=== PATIENT | male | born 1965 | race Caucasian/White ===

== ENCOUNTER 2017-12-20 09:37 | Inpatient (IN) | payer MEDICARE, MEDICAID ==
[~2017-12-20] VITALS: Ht 165.1 cm; Wt 96.2 kg
[2017-12-20] MEDS ORDERED: SODIUM CHLORIDE 0.9% 1,000 ML IV ONE (10:06)
[2017-12-20] MEDS ORDERED: METHYLPREDNISOLONE SOD SUCC 125 MG/2 ML VIAL IV STA (10:06)
[2017-12-20] MEDS ORDERED: FUROSEMIDE 40MG/4ML VIAL IVP ONE (10:15)
[2017-12-20] MEDS ORDERED: NITROGLYCERIN OINT 1GM/INCH UDPKT TD ONE (10:15)
[2017-12-20] MEDS ORDERED: ACETAMINOPHEN 325MG TABLET PO ONE (10:15)
[2017-12-20] MEDS ORDERED: IPRATROPIUM/ALBUTEROL 0.5-3(2.5)MG/3ML NEB HHN ONE (10:15)
[2017-12-20] MEDS ORDERED: ONDANSETRON HCL 4MG/2ML VIAL IV PRN (10:30)
[2017-12-20] MEDS ORDERED: DOCUSATE SODIUM 100MG CAPSULE PO PRN (10:30)
[2017-12-20] MEDS ORDERED: ACETAMINOPHEN 325MG TABLET PO PRN (10:30)
[2017-12-20] MEDS ORDERED: ENOXAPARIN 40MG/0.4ML SYR SUBCUT SCH (10:30)
[2017-12-20] MEDS ORDERED: IPRATROPIUM/ALBUTEROL 0.5-3(2.5)MG/3ML NEB INH PRN (10:30)
[2017-12-20] MEDS ORDERED: LEVOFLOXACIN 500MG PREMIX 100 ML IV SCH (10:30)
[2017-12-20] MEDS ORDERED: MORPHINE SULFATE 2 MG/ML CPJ (NOT FOR IM USE) IV PRN (10:30)
[2017-12-20] MEDS ORDERED: CLONIDINE 0.1MG TABLET PO PRN (10:30)
[2017-12-20 10:40] LABS: BASOPHILS % 0.9 % (0.0-2.0); EOSINOPHILS % 1.5 % (0.0-5.0); HEMATOCRIT. 30.3 % (42.0-52.0); HEMOGLOBIN. 10.2 g/dL (14.0-18.0); LYMPHOCYTES % 11.1 % (20.0-50.0); MEAN CORPUSCULAR HEMOGLOBIN 32.4 pg (28.0-32.0); MEAN CORPUSCULAR VOLUME 96.5 fL (80.0-94.0); MEAN PLATELET VOLUME 7.8 fl (7.4-10.4); MONOCYTES % 7.6 % (2.0-8.0); NEUTROPHILS % 78.9 % (40.0-76.0); PLATELET 204 x1000/uL (130-400); RED BLOOD CELL COUNT 3.15 mill/uL (4.7-6.1); RED CELL DISTRIBUTION WIDTH 15.9 % (11.6-14.6)
[2017-12-20 10:49] LABS: PARTIAL THROMBOPLASTIN TIME 27.3 sec (23.4-31.0); PROTHROMBIN TIME 10.4 sec (9.4-11.6)
[2017-12-20 10:57] LABS: CARBON DIOXIDE 31 mEq/L (21-32); CHLORIDE 97 mEq/L (98-107); TROPONIN I 0.04 ng/mL (0.00-0.04)
[2017-12-20 11:00] VITALS: BP 159/90
[2017-12-20 11:06] LABS: BG BASE EXCESS 3.1 mmol/L (-2.0-2.0); BG CARBOXYHEMOGLOBIN 0.9 % (0.5-1.5); BG DEOXYHEMOGLOBIN 5.3 % (0.0-5.0); BG FRACTION INSPIRED OXYGEN 28; BG HCO3 ACT 26.8 mmol/L (22.0-26.0); BG METHEMOGLOBIN 0.2 % (0.0-1.5); BG OXYGEN SATURATION 94.6 % (92.0-98.5); BG OXYHEMOGLOBIN 93.6 % (94.0-97.0); BG PCO2 37.4 mmHg (35.0-45.0); BG PH 7.473 (7.350-7.450); BG PO2 74.8 mmHg (75.0-100.0); BG SAMPLE SITE RIGHT RADIAL; BG TOTAL HEMOGLOBIN 10.8 g/dL (12.0-18.0); BG VENT MODE NASAL CANNULA
[2017-12-20] MEDS ORDERED: DEXTROSE 50% WATER 50ML SYRINGE IV ONE (11:15)
[2017-12-20] MEDS ORDERED: CALCIUM CHLORIDE 1,000 MG in DEXT 5% WATER 100 ML IV ONE (11:15)
[2017-12-20] MEDS ORDERED: SODIUM BICARBONATE 8.4% 1 MEQ/ML 50ML SYR IV ONE (11:15)
[2017-12-20] MEDS ORDERED: INSULIN REGULAR (HUMULIN R) 300UNITS/3ML IV ONE (11:15)
[2017-12-20] MEDS ORDERED: SODIUM POLYSTYRENE SULFONATE 15 G/60 ML BOT PO ONE (11:15)
[2017-12-20] MEDS ORDERED: IOHEXOL-350 100 ML BOTTLE ONE (12:52)
[2017-12-20 14:00] VITALS: BP 140/71
[2017-12-20] MEDS ORDERED: IPRATROPIUM/ALBUTEROL 0.5-3(2.5)MG/3ML NEB HHN PRN (16:15)
[2017-12-20] MEDS ORDERED: AMLO10TA80 PO (16:52)
[2017-12-20] MEDS ORDERED: LOSA50TA20 PO (16:53)
[2017-12-20] MEDS ORDERED: SEVE800T8 PO (16:54)
[2017-12-20] MEDS ORDERED: METO-396 PO (16:54)
[2017-12-20] MEDS ORDERED: LEVOFLOXACIN 750MG PREMIX 150 ML IV SCH (17:00)
[2017-12-20] MEDS ORDERED: SODI15OR4 PO (17:04)
[2017-12-20] MEDS ORDERED: CLON0.1T PO (17:06)
[2017-12-20 17:08] VITALS: BP 131/64
[2017-12-20] MEDS: ENOXAPARIN 30MG/0.3ML SYR SUBCUT SCH (17:46)
[2017-12-20 18:57] LABS: BG BASE EXCESS 1.9 mmol/L (-2.0-2.0); BG CARBOXYHEMOGLOBIN 1.5 % (0.5-1.5); BG DEOXYHEMOGLOBIN 6.9 % (0.0-5.0); BG FRACTION INSPIRED OXYGEN 21; BG HCO3 ACT 25.3 mmol/L (22.0-26.0); BG METHEMOGLOBIN 0.2 % (0.0-1.5); BG OXYHEMOGLOBIN 91.4 % (94.0-97.0); BG PCO2 35.4 mmHg (35.0-45.0); BG PH 7.472 (7.350-7.450); BG PO2 71.4 mmHg (75.0-100.0); BG SAMPLE SITE RIGHT RADIAL; BG TOTAL HEMOGLOBIN 11.4 g/dL (12.0-18.0); BG VENT MODE ROOM AIR
[2017-12-20 19:59] VITALS: BP 157/88
[2017-12-20] MEDS ORDERED: METO25TA6 PO (20:26)
[2017-12-20] MEDS: IPRATROPIUM/ALBUTEROL 0.5-3(2.5)MG/3ML NEB HHN SCH (21:09)
[2017-12-20] MEDS: LOSARTAN POTASSIUM 50 MG TABLET PO SCH (21:59)
[2017-12-20] MEDS: CLONIDINE 0.1MG TABLET PO SCH (22:00)
[2017-12-20 23:56] VITALS: BP 152/79
[2017-12-21] MEDS ORDERED: DEXTROSE 50% WATER 50ML SYRINGE IV PRN (01:00)
[2017-12-21] MEDS: IPRATROPIUM/ALBUTEROL 0.5-3(2.5)MG/3ML NEB HHN SCH ×2 (01:10→10:08)
[2017-12-21 03:48] VITALS: BP 149/79
[2017-12-21] MEDS: CLONIDINE 0.1MG TABLET PO SCH (06:00)
[2017-12-21 06:26] LABS: HEMATOCRIT. 27.6 % (42.0-52.0); HEMOGLOBIN. 9.3 g/dL (14.0-18.0); MEAN CORPUSCULAR HEMOGLOBIN 32.5 pg (28.0-32.0); MEAN CORPUSCULAR VOLUME 96.1 fL (80.0-94.0); MEAN PLATELET VOLUME 8.3 fl (7.4-10.4); PLATELET 184 x1000/uL (130-400); RED BLOOD CELL COUNT 2.87 mill/uL (4.7-6.1); RED CELL DISTRIBUTION WIDTH 15.9 % (11.6-14.6)
[2017-12-21] MEDS: INSULIN LISPRO 100 UNITS/ML SUBCUT SCH ×2 (07:50→12:50)
[2017-12-21] MEDS: BLOOD SUGAR DIAGNOSTIC STRIP TEST SCH ×2 (08:00→11:52)
[2017-12-21 08:11] LABS: CARBON DIOXIDE 27 mEq/L (21-32); CHLORIDE 99 mEq/L (98-107); HDL CHOLESTEROL 68 mg/dL (40-59); LDL CHOLESTEROL 61 mg/dL (5-100)
[2017-12-21 08:13] LABS: TROPONIN I 0.04 ng/mL (0.00-0.04)
[2017-12-21] MEDS: LOSARTAN POTASSIUM 50 MG TABLET PO SCH (08:33)
[2017-12-21] MEDS: ENOXAPARIN 30MG/0.3ML SYR SUBCUT SCH (08:33)
[2017-12-21] MEDS: SEVELAMER CARBONATE 800 MG TABLET PO SCH ×2 (08:33→12:50)
[2017-12-21] MEDS ORDERED: INSULIN REGULAR (HUMULIN R) UD 100 UNITS/ML SYR IV NR (08:45)
[2017-12-21] MEDS ORDERED: SODIUM POLYSTYRENE SULFONATE 15 G/60 ML BOT PO NR (08:45)
[2017-12-21] MEDS ORDERED: DEXTROSE 50% WATER 50ML SYRINGE IV NR (08:45)
[2017-12-21] MEDS ORDERED: SODIUM BICARBONATE 8.4% 1 MEQ/ML 50ML SYR IV NR (08:45)
[2017-12-21 08:53] VITALS: BP 163/93
[2017-12-21] MEDS ORDERED: METOPROLOL TARTRATE 25MG TABLET PO SCH (09:00)
[2017-12-21] MEDS ORDERED: ASPIRIN 81MG TABLET PO SCH (09:00)
[2017-12-21] MEDS ORDERED: MEDICATION NOT ON FORMULARY EA (Metoprolol Succinate 1 TAB) PO SCH (09:00)
[2017-12-21] MEDS ORDERED: AMLODIPINE 10MG TABLET PO SCH (09:00)
[2017-12-21 09:12] LABS: PLATELET ESTIMATE NORMAL
[2017-12-21 11:30] LABS: T4 FREE 0.71 ng/dL (0.76-1.46)
[2017-12-21 13:12] VITALS: BP 140/80
[2017-12-22] MEDS ORDERED: LEVOFLOXACIN 500MG PREMIX 100 ML IV SCH (17:00)
== END 2017-12-21 18:44 | disposition left against medical advice (07) | DRG 189 ==
LOC: ER 09:55 → 6WST 10:30 → ENRESERV 12:23
PROVIDERS: ADMIT Internal Medicine Nephrology; ATTEND Internal Medicine Nephrology
PROC: 5A1D70Z Performance of Urinary Filtration, Intermittent, Less than 6 Hours Per Day (ICD-10-PCS; principal; 2017-12-21)
DX: J96.01 Acute respiratory failure with hypoxia (principal); E11.22 Type 2 diabetes mellitus with diabetic chronic kidney disease; I12.0 Hypertensive chronic kidney disease with stage 5 chronic kidney disease or end stage renal disease; N18.6 End stage renal disease; E87.5 Hyperkalemia; D64.9 Anemia, unspecified; M19.90 Unspecified osteoarthritis, unspecified site; J44.9 Chronic obstructive pulmonary disease, unspecified; Z53.21 Procedure and treatment not carried out due to patient leaving prior to being seen by health care provider; Z82.49 Family history of ischemic heart disease and other diseases of the circulatory system; Z99.2 Dependence on renal dialysis; Z87.01 Personal history of pneumonia (recurrent); Z88.0 Allergy status to penicillin; Z79.899 Other long term (current) drug therapy
CPT/HCPCS: 36415; 36600; 71045; 71275; 80053; 80061; 82375; 82805; 82962; 83036; 83605; 83880; 84132; 84439; 84443; 84484; 85025; 85379; 85610; 85730; 87040; 87804; 93005; 93306; 93970; 94640; 96361; 96374; 96375; 99285; J1650; J1815; J1940; J1956; J2930; J3490; J7030; J7050; J7060; J7620; Q9967